=== PATIENT | male | born 1985 | race Caucasian/White ===

== ENCOUNTER 2016-07-05 08:52 | Emergency (ER) | payer OTHER, SELFPAY ==
[2016-07-05 09:07] VITALS: BP 145/72
--- NOTE | 2016-07-05 11:26 | EDM.PDOC ---
ED HPI Trauma - General Chief Complaint: Lower Extremity Injury/Pain Stated Complaint: RT FOOT PAIN Time Seen by Provider: 07/05/16 09:05 Source: Reports: Patient History Limitations: Reports: No limitations - History of Present Illness INITIAL COMMENTS - FREE TEXT/NARRATIVE: History of present illness: [30-year-old male presents complaining of right ankle pain. 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 No fevers or chills has no prior history of injuries to that ankle. Last night it hurt so much she had trouble sleeping he felt like he was on fire] Review of systems: As per history of present illness and below otherwise all systems reviewed and negative. Past medical history: As per history of present illness and as reviewed below otherwise noncontributory. Surgical history: As per history of present illness and as reviewed below otherwise noncontributory. Social history: No reported history of drug or alcohol abuse. Family history: As per history of present illness and as reviewed below otherwise noncontributory. Physical exam: HEENT: Atraumatic, normocephalic, pupils reactive, negative for conjunctival pallor or scleral icterus, mucous membranes moist, throat clear, neck supple, nontender, trachea midline. Lungs: Clear to auscultation, breath sounds equal bilaterally, chest nontender. Heart: S1S2, regular, negative for clicks, rubs, or JVD. Abdomen: Soft, nondistended, nontender. Negative for masses or hepatosplenomegaly. Negative for costovertebral tenderness. Extremities: The right ankle is slightly swollen as compared to the left in a prone maximal tenderness is in the intraosseous space just above the talus Neuro: Awake, alert, oriented. Cranial nerves II through XII unremarkable. Cerebellum unremarkable. Motor and sensory unremarkable throughout. Exam nonfocal. Diagnostics: [CBC sedimentation rate and CRP were done and no evidence for an inflammatory elevation of these markers was found] Therapeutics: [] Impression: [High ankle sprain] Plan: [Right excuse him from work until July 09 he will use [id number] NSAIDs ice and and stay off of it as much as possible and hopefully by then he'll be doing better] Definitive disposition and diagnosis as appropriate pending reevaluation and review of above. Allergies/ADRs: Allergies No Known Allergies Allergy (Verified 07/05/16 09:12) Home Medications: Ambulatory Orders NK [No Known Home Meds] 07/05/16 [Confirmed 07/05/16] Past Medical History - Past Surgical History GI Surgical History: Reports: Appendectomy Social & Family History - Tobacco Use Smoking Status *Q: Current Every Day Smoker Years of Tobacco use: 20 Packs/Tins Daily: 1 - Recreational Drug Use Recreational Drug Type: Reports: Marijuana/Hashish Recreational Drug Use Frequency: Weekly Review of Systems - Review of Systems Review Of Systems: ROS reveals no pertinent complaints other than HPI. Trauma Exam - Physical Exam Exam: See Below Course - Vital Signs Last Recorded V/S: Last Vital Signs Temp 36.7 C 07/05/16 09:06 Pulse 77 07/05/16 09:06 Resp 18 07/05/16 09:06 BP 145/72 H 07/05/16 09:06 Pulse Ox 97 07/05/16 09:06 - Orders/Labs/Meds Orders: Active Orders 24 hr Category Date Time Status Ankle Min 3V Lt [CR] Stat Exams 07/05/16 09:06 Taken Labs: Laboratory Tests 07/05/16 07/05/16 Range/Units 10:26 10:26 WBC 8.3 (4.5-11.0) K/uL RBC 4.70 (4.30-5.90) M/uL Hgb 14.2 (12.0-15.0) g/dL Hct 40.3 (40.0-54.0) % MCV 86 (80-98) fL MCH 30 (27-31) pg MCHC 35 (32-36) % Plt Count 221 (150-400) K/uL Neut % (Auto) 60 (36-66) % Lymph % (Auto) 22 L (24-44) % [place] % (Auto) 13 H (2-6) % Eos % (Auto) 5 H (2-4) % Baso % (Auto) 1 (0-1) % ESR 0 (0-20) mm/hr C-Reactive Protein 0.14 (0.0-0.3) mg/dL Departure - Departure Time of Disposition: 11:25 Disposition: Home, Self-Care 01 Condition: good Clinical Impression: High ankle sprain of right lower extremity Qualifiers: Encounter type: initial encounter Qualified Code(s): S93.431A - Sprain of tibiofibular ligament of right ankle, initial encounter Forms: ED Department Discharge Additional Instructions: Please use [id number] Aleve as we discussed and tried a stay off foot as much as possible and ice it frequently and hopefully by Thursday you'll be doing better - My Orders Last 24 Hours: My Active Orders 07/05/16 09:06 Ankle Min 3V Lt [CR] Stat - Assessment/Plan Last 24 Hours: My Active Orders 07/05/16 09:06 Ankle Min 3V Lt [CR] Stat
--- NOTE | 2016-07-07 09:05 | CR ---
Ankle Min 3V Lt INDICATION: Progressive pain FINDINGS: Negative right ankle.
== END 2016-07-05 11:32 | disposition home or self-care (01) ==
LOC: JP.ED 08:52
DX: S93.431A Sprain of tibiofibular ligament of right ankle, initial encounter (principal); Z90.49 Acquired absence of other specified parts of digestive tract; X58.XXXA Exposure to other specified factors, initial encounter
CPT/HCPCS: 36415; 73610-26-LT; 73610-LT; 85025; 85651; 86140; 99282; 99284

== ENCOUNTER 2016-10-01 07:10 | Emergency (ER) | payer OTHER, SELFPAY ==
[2016-10-01 07:27] VITALS: BP 132/74
--- NOTE | 2016-10-01 07:48 | EDM.PDOC ---
ED HPI GENERAL MEDICAL PROBLEM - General Chief Complaint: ENT Problem Stated Complaint: TOOTH ACHE LEFT SIDE Time Seen by Provider: 10/01/16 07:38 Source of Information: Reports: Patient, RN Notes Reviewed History Limitations: Reports: No Limitations - History of Present Illness INITIAL COMMENTS - FREE TEXT/NARRATIVE: 30-year-old gentleman presents emergency department today complaint of dental pain and concern for abscess he did have an area he states where he ruptured thick purulent discharge came out. He has multiple dental caries and poor dental care denies any fevers Right Lower Tooth/Teeth Pain Score (Numeric/FACES): 9 - Related Data Allergies Allergy/AdvReac Type Severity Reaction Status Date / Time No Known Allergies Allergy Verified 10/01/16 07:32 Home Meds: Home Meds NK [No Known Home Meds] 07/05/16 [History] Past Medical History - Past Surgical History HEENT Surgical History: Reports: Adenoidectomy, Tonsillectomy GI Surgical History: Reports: Appendectomy Social & Family History - Tobacco Use Smoking Status *Q: Current Every Day Smoker Years of Tobacco use: 20 Packs/Tins Daily: 1 - Caffeine Use Caffeine Use: Reports: Soda - Recreational Drug Use Recreational Drug Use: No Recreational Drug Type: Reports: Marijuana/Hashish Recreational Drug Use Frequency: Weekly ED ROS ENT - Review of Systems Review Of Systems: See Below (I think she is going to go she just had mild) Constitutional: Denies: Fever, Chills HEENT: Reports: Dental Pain Respiratory: Reports: No Symptoms Cardiovascular: Reports: No Symptoms GI/Abdominal: Reports: No Symptoms ED EXAM, ENT - Physical Exam Exam: See Below (my and wants the best way to hydrate herself not not to the IV) Text/Narrative:: Mouth mucosa is moist and pink, no erythema or exudate noted in soft palate tongue is midline, multiple dental caries noted, tenderness the anterior portion of the left jaw, tongue stud in place Exam Limited By: No Limitations General Appearance: Alert, WD/WN, No Apparent Distress Course - Vital Signs Last Recorded V/S: Last Vital Signs Temp 96.3 F 10/01/16 07:30 Pulse 106 H 10/01/16 07:30 Resp 18 10/01/16 07:30 BP 132/74 10/01/16 07:30 Pulse Ox 99 10/01/16 07:30 Departure - Departure Time of Disposition: 07:51 Disposition: Home, Self-Care 01 Condition: Fair Clinical Impression: Pain, dental - Discharge Information Forms: ED Department Discharge Additional Instructions: Take full course of antibiotics, please report to dental clinic at 8:15 today - Assessment/Plan Plan: Assessment Acuity = acute on chronic Site and laterality = dental pain Etiology = multiple dental caries Manifestations = none Location of injury = home Lab values = none Plan Started on clindamycin 300 mg 4 times a day for 10 days referral set up for dental clinic today Patient was in agreement with the plan all questions were answered, they were instructed to return to the emergency department or call for worsening symptoms. This note was dictated using [employer] voice recognition software please call with any questions.
== END 2016-10-01 08:08 | disposition home or self-care (01) ==
LOC: JP.ED 07:10
DX: K08.89 Other specified disorders of teeth and supporting structures (principal); F17.210 Nicotine dependence, cigarettes, uncomplicated; Z90.49 Acquired absence of other specified parts of digestive tract; Z98.890 Other specified postprocedural states
CPT/HCPCS: 99283

== ENCOUNTER 2017-03-17 11:49 | Emergency (ER) | payer SELFPAY ==
[2017-03-17 12:02] VITALS: BP 121/67
--- NOTE | 2017-03-17 12:26 | EDM.PDOC ---
ED HPI GENERAL MEDICAL PROBLEM - General Chief Complaint: Skin Complaint Stated Complaint: BURNING RASH, BOTH ARMPITS Time Seen by Provider: 03/17/17 12:10 Source of Information: Reports: Patient History Limitations: Reports: No Limitations - History of Present Illness INITIAL COMMENTS - FREE TEXT/NARRATIVE: 31 yo male is here from work with a rash to the lateral chest area bilaterally just below the axilla. Is is a little itchy and santizo a little. Has no doctor. No other sx's. Onset Date: 03/15/17 Duration: Day(s): Location: Reports: Chest Quality: Reports: Burning, Other (mild itching) Severity: Mild Improves with: Reports: None Worsens with: Reports: None Context: Reports: Other (unknown) Associated Symptoms: Reports: No Other Symptoms Treatments BRAINER: Reports: Other (see below) (none) - Related Data Allergies Allergy/AdvReac Type Severity Reaction Status Date / Time No Known Allergies Allergy Verified 10/01/16 07:32 Home Meds: Home Meds NK [No Known Home Meds] 07/05/16 [History] Past Medical History Dermatologic History: Reports: Other (See Below) Other Dermatologic History: c/o rash under both arms on chest wall staes santizo - Past Surgical History HEENT Surgical History: Reports: Adenoidectomy, Tonsillectomy GI Surgical History: Reports: Appendectomy Social & Family History - Tobacco Use Smoking Status *Q: Current Every Day Smoker Years of Tobacco use: 20 Packs/Tins Daily: 1 - Caffeine Use Caffeine Use: Reports: Coffee - Recreational Drug Use Recreational Drug Use: No Recreational Drug Type: Reports: Marijuana/Hashish Recreational Drug Use Frequency: Weekly ED ROS GENERAL - Review of Systems Review Of Systems: See Below Constitutional: Reports: No Symptoms Respiratory: Reports: No Symptoms Skin: Reports: Rash, Erythema Neurological: Reports: No Symptoms ED EXAM, SKIN/RASH Exam: See Below Exam Limited By: No Limitations General Appearance: Alert, WD/WN, No Apparent Distress Respiratory/Chest: No Respiratory Distress, Lungs Clear, Normal Breath Sounds, No Accessory Muscle Use. No: Pleural Rub Cardiovascular: Regular Rate, Rhythm Skin: Warm, Dry, Intact, Erythema, Rash (minimally raised rash to both axillary areas. No pustules or vesicles. ). No: Normal Color, No Rash Location, Skin: Other (Just below the axillas bilaterally.) Associated features: Inflammation, Weeping (minimally). No: Warmth, Tenderness , Swelling, Induration, Scaling Lymphatic: No Adenopathy Course - Vital Signs Last Recorded V/S: Last Vital Signs Temp 36.5 C 03/17/17 12:00 Pulse 72 03/17/17 12:00 Resp 18 03/17/17 12:00 BP 121/67 03/17/17 12:00 Pulse Ox Departure - Departure Time of Disposition: 12:26 Disposition: Home, Self-Care 01 Condition: Good Clinical Impression: Contact dermatitis Qualifiers: Contact dermatitis type: unspecified Contact dermatitis trigger: unspecified trigger Qualified Code(s): L25.9 - Unspecified contact dermatitis, unspecified cause - Discharge Information Referrals: PCP,None [Primary Care Provider] - Forms: ED Department Discharge Additional Instructions: Use the Triamcinolone as directed until gone. Avoid deodorants or antiperspirants to area for now. Recheck in the clinic in a week, call for an appt to get established.
== END 2017-03-17 12:36 | disposition home or self-care (01) ==
LOC: JP.ED 11:49
DX: L25.9 Unspecified contact dermatitis, unspecified cause (principal); F17.210 Nicotine dependence, cigarettes, uncomplicated
CPT/HCPCS: 99283

== ENCOUNTER 2020-06-21 08:20 | Emergency (ER) | payer SELFPAY ==
[2020-06-21] MEDS ORDERED: LORazepam 2 MG/ML SDV IVPUSH ONE (08:21)
[2020-06-21] MEDS ORDERED: ceFAZolin 1 GM in Premix Bag 1 BAG IV ONE ×2 (08:21→08:45)
[2020-06-21] MEDS ORDERED: fentaNYL 100 MCG/2 ML SDV IVPUSH ONE ×2 (08:29→09:01)
[2020-06-21] MEDS: Sodium Chloride 0.9% 1,000 ML IV SCH ×2 (08:44→08:46)
--- NOTE | 2020-06-21 08:45 | EDM.PDOC ---
ED HPI GENERAL MEDICAL PROBLEM - General Stated Complaint: DOG ATTACK Time Seen by Provider: 06/21/20 08:47 Source of Information: Reports: Patient, Family, RN Notes Reviewed History Limitations: Reports: No Limitations - History of Present Illness INITIAL COMMENTS - FREE TEXT/NARRATIVE: 34-year-old gentleman presents emergency department day following a dog attack, he was attacked by his own dog in [place] he has multiple lacerations of the face and upper extremities denies any other trauma - Related Data Allergies Allergy/AdvReac Type Severity Reaction Status Date / Time No Known Allergies Allergy Verified 02/20/18 07:29 Home Meds: Home Meds Amoxicillin/Potassium Clav [Augmentin 875-125 Tablet] 1 each PO Q12H #6 tablet 02/20/18 [Rx] Past Medical History Dermatologic History: Reports: Other (See Below) Other Dermatologic History: c/o rash under both arms on chest wall staes santizo - Infectious Disease History Infectious Disease History: Reports: Chicken Pox - Past Surgical History Head Surgeries/Procedures: Reports: None HEENT Surgical History: Reports: Adenoidectomy, Tonsillectomy GI Surgical History: Reports: Appendectomy Social & Family History - Caffeine Use Caffeine Use: Reports: Coffee, Soda Review of Systems - Review of Systems Review Of Systems: See Below Skin: Reports: Wound ED EXAM, GENERAL - Physical Exam Exam: See Below Free Text/Narrative:: Primary survey airway is open patent and clear lungs are clear to auscultation bilaterally cardiovascular intact regular rate and rhythm S1-S2 GCS 15 Severe laceration to the face encompassing nose superior part of the lip and cheek which has been removed along with musculature. There is a approximately 7 cm laceration right forearm a smaller 1 cm laceration just below that lacerations to digits 1 and 5 approximately 1 cm in length Exam Limited By: No Limitations General Appearance: Moderate Distress Respiratory/Chest: No Respiratory Distress, Lungs Clear, Normal Breath Sounds, No Accessory Muscle Use, Chest Non-Tender Cardiovascular: Regular Rate, Rhythm, No Murmur GI/Abdominal: Soft, Non-Tender Course - Orders/Labs/Meds Orders: Active Orders 24 hr Category Date Time Status ceFAZolin [Ancef 1 GM/50 ML] 1 gm Med 06/21/20 08:21 Ordered Premix Bag 1 bag IV ONETIME Medication Orders Cefazolin Sodium/Dextrose 1 gm (/ Premix) 50 mls @ 100 mls/hr IV ONETIME ONE Stop: 06/21/20 08:50 Meds: Medications Generic Name Dose Route Start Last Admin Trade Name Freq PRN Reason Stop Dose Admin Cefazolin Sodium/Dextrose 1 gm 50 mls @ 100 mls/hr 06/21/20 08:21 / Premix IV 06/21/20 08:50 ONETIME ONE Discontinued Medications Generic Name Dose Route Start Last Admin Trade Name Freq PRN Reason Stop Dose Admin Lorazepam 1 mg 06/21/20 08:21 Ativan IVPUSH 06/21/20 08:22 ONETIME ONE Departure - Departure Time of Disposition: 08:52 Disposition: DC/Tfer to Acute Hospital 02 Condition: Fair Clinical Impression: Open wound of face due to dog bite - Discharge Information Critical Care Note - Critical Care Note Total Time (mins): 30 - My Orders Last 24 Hours: My Active Orders 06/21/20 08:21 ceFAZolin [Ancef 1 GM/50 ML] 1 gm Premix Bag 1 bag IV ONETIME - Assessment/Plan Last 24 Hours: My Active Orders 06/21/20 08:21 ceFAZolin [Ancef 1 GM/50 ML] 1 gm Premix Bag 1 bag IV ONETIME Plan: Assessment Acuity = acute Site and laterality = severe laceration to the face Etiology = dog bite Manifestations = none Location of injury = Home Lab values = none Plan Initially called Dr. Grady general surgeon on-call today kindly presented to the emergency department at 830 for evaluation of the wound recommended immediate transfer to oral maxillofacial surgeon, Dr. Grady did approximate the wound and then dressed the wounds for transport. Called and discussed the case with oral maxillofacial surgeon Dr. Escobar [facility] at 840 also discussed the case with emergency room physician [facility] Dr. Santiago kindly accepted the patient in transport will be transported via EMS ground thus far he has received 1 mg Ativan 1 g Ancef 50 mcg fentanyl [address] tetanus was in 2018 will be transferred via EMS ground This note was dictated using [employer] voice recognition software please call with any questions on syntax or grammar.
[2020-06-21 09:05] VITALS: BP 112/68; PULSE 91
--- NOTE | 2020-06-21 18:23 | CONS ---
DATE OF SERVICE: 06/21/2020 REFERRING PHYSICIAN: CONSULTING PHYSICIAN: Severo Grady MD REASON FOR CONSULTATION: Dog bite, left side of face. HISTORY OF PRESENT ILLNESS: A pleasant 34-year-old male who was brought with a dog bite to his face. The patient is essentially nonverbal due to emotional shock. On inspection, he has significant injuries including orbicularis muscles of his left side of face including and through the oral cavity. The patient has not had any trouble breathing. He is able to answer simple basic questions. PHYSICAL EXAMINATION: As described above. LUNGS: Clear. CARDIOVASCULAR: Regular rhythm and rate. EXTREMITIES: He does move all 4 extremities. ASSESSMENT: Dog bite, left face. PLAN: The patient will be transferred immediately for poultry killer. We have reapproximated his wounds. Greater than 1 hour was spent in discussion and consultation along with arranging transfer and care of this patient. Severo Grady MD /[id number]
== END 2020-06-21 09:30 ==
LOC: JP.ED 08:20
DX: S01.551A Open bite of lip, initial encounter (principal); S01.459A Open bite of unspecified cheek and temporomandibular area, initial encounter; S51.851A Open bite of right forearm, initial encounter; S61.258A Open bite of other finger without damage to nail, initial encounter; S61.059A Open bite of unspecified thumb without damage to nail, initial encounter; W54.0XXA Bitten by dog, initial encounter
CPT/HCPCS: 96365; 96375; 96376; 99285; J0690; J2060; J3010; J7030; 99291

== ENCOUNTER 2021-08-18 17:46 | Emergency (ER) | payer SELFPAY ==
[2021-08-18 18:04] VITALS: BP 135/92; PULSE 98
[2021-08-18] MEDS ORDERED: Ibuprofen 400 MG Tab PO ONE (18:14)
[2021-08-18] MEDS ORDERED: Lidocaine 1% 5 ML VIAL INJECT ONE (18:37)
[2021-08-18] MEDS ORDERED: Colchicine 0.6 MG Tab PO ONE ×2 (18:49→18:50)
== END 2021-08-18 19:11 | disposition home or self-care (01) ==
LOC: JP.ED 17:46
DX: M25.572 Pain in left ankle and joints of left foot (principal); M10.072 Idiopathic gout, left ankle and foot; F17.210 Nicotine dependence, cigarettes, uncomplicated; Z90.49 Acquired absence of other specified parts of digestive tract
CPT/HCPCS: 36415; 73610; 80048; 85025; 86140; 99283; A9270; 99282

== ENCOUNTER 2022-05-27 18:24 | Emergency (ER) | payer MEDICAID ==
[2022-05-27] MEDS ORDERED: Sodium Chloride 0.9% 1,000 ML IV STA (19:34)
[2022-05-27] MEDS ORDERED: Sodium Chloride 0.9% 10 ML Syringe FLUSH PRN (19:34)
[2022-05-27] MEDS ORDERED: Ondansetron 4 MG/2 ML SDV IVPUSH ONE (19:34)
[2022-05-27] MEDS ORDERED: fentaNYL 100 MCG/2 ML SDV IVPUSH ONE (19:34)
[2022-05-27] MEDS ORDERED: Iopamidol 612 MG/ML 100 ML Bottle IV SCH (20:00)
[2022-05-27] MEDS ORDERED: Sodium Chloride 0.9% 75 ML IV SCH (20:00)
[2022-05-27 20:15] LABS: ESTIMATED GFR 99 mL/min (>60); TROPONIN I HIGH SENSITIVITY < 4.0 pg/mL (<=60.3)
[2022-05-27 21:03] VITALS: BP 119/61; PULSE 86
== END 2022-05-27 22:30 | disposition home or self-care (01) ==
LOC: JP.ED 18:24
DX: R10.84 Generalized abdominal pain (principal); F17.210 Nicotine dependence, cigarettes, uncomplicated
CPT/HCPCS: 36415; 74177; 80053; 81001; 83605; 83690; 84484; 85025; 96361; 96374; 96375; 99284; J2405; J3010; J3490; J7030; Q9967; 99283